=== PATIENT | male | born 1950 | race Caucasian/White ===

== ENCOUNTER → 2018-01-08 | Outpatient (CLI) | payer MEDICARE | END | disposition home or self-care (01) | LOC: CARD 11:57 | PROVIDERS: ATTEND Internal Medicine Cardiovascular Disease | DX: J84.10 Pulmonary fibrosis, unspecified (principal); I10 Essential (primary) hypertension | CPT/HCPCS: 94010; 94726; 94729 ==

== ENCOUNTER → 2018-04-28 | Outpatient (CLI) | payer MEDICARE | END | disposition home or self-care (01) | LOC: CVU 14:27 | PROVIDERS: ATTEND Internal Medicine Cardiovascular Disease | DX: I07.1 Rheumatic tricuspid insufficiency (principal); I49.9 Cardiac arrhythmia, unspecified; I10 Essential (primary) hypertension; Z87.891 Personal history of nicotine dependence | CPT/HCPCS: 93306 ==

== ENCOUNTER 2018-10-07 08:24 | Day surgery (SDC) | payer MEDICARE ==
[~2018-10-07] VITALS: Ht 182.9 cm; Wt 129.5 kg
[2018-10-07 08:56] VITALS: BP 153/77
[2018-10-07] MEDS ORDERED: DIPHENHYDRAMINE 50 MG/ML, 1ML IVPush ONE (09:00)
[2018-10-07] MEDS ORDERED: PLEASE ENTER HEIGHT AND WEIGHT MC SCH (09:00)
[2018-10-07] MEDS ORDERED: IRBE1TAB37 PO (09:10)
[2018-10-07] MEDS ORDERED: IBUP-1223 PO (09:10)
[2018-10-07] MEDS ORDERED: TAMS0.4C2 PO (09:10)
[2018-10-07] MEDS ORDERED: FINA5TAB4 PO (09:10)
[2018-10-07] MEDS ORDERED: INFL100V IV (09:10)
[2018-10-07] MEDS ORDERED: OMEP20TA62 PO (09:10)
[2018-10-07] MEDS ORDERED: DIPHENHYDRAMINE 50 MG/ML, 1ML ONE (09:21)
[2018-10-07] MEDS ORDERED: FENTANYL PF 100 MCG/2ML ONE (10:24)
[2018-10-07] MEDS ORDERED: MIDAZOLAM 1 MG/ML, 2ML ONE (10:24)
== END 2018-10-07 12:30 | disposition home or self-care (01) ==
LOC: CACL 08:24
PROVIDERS: ATTEND Internal Medicine Cardiovascular Disease
DX: I27.20 Pulmonary hypertension, unspecified (principal); I10 Essential (primary) hypertension
CPT/HCPCS: 93451; 99156; 99157; C1769; C1894; J1200; J2250; J3010

== ENCOUNTER → 2019-02-03 | Outpatient (CLI) | payer MEDICARE ==
[~2019-02-03] MED LIST: FINA5TAB4 PO; IBUP-1223 PO; INFL100V IV; IRBE1TAB37 PO; OMEP20TA62 PO; TAMS0.4C2 PO
== END | disposition home or self-care (01) ==
LOC: CFH 10:15
PROVIDERS: ATTEND Nurse Practitioner Family
DX: J84.115 Respiratory bronchiolitis interstitial lung disease (principal)
CPT/HCPCS: 71250

== ENCOUNTER → 2019-10-04 | Outpatient (CLI) | payer MEDICARE ==
[~2019-10-04] MED LIST changes: +REGADENOSON 0.4 MG/5 ML SYRINGE ONE
== END | disposition home or self-care (01) ==
LOC: CFH 13:02
PROVIDERS: ATTEND Physician Assistant Medical
DX: I25.10 Atherosclerotic heart disease of native coronary artery without angina pectoris (principal)
CPT/HCPCS: 78452; 93017; A9502; J2785